=== PATIENT | male | born 1970 | race Caucasian/White ===

== ENCOUNTER 2017-08-30 23:17 | Emergency (ER) | payer MEDICAID ==
[~2017-08-30] VITALS: Ht 175.3 cm; Wt 88.5 kg
[2017-08-30 23:21] VITALS: Ht 175.3 cm; Wt 88.5 kg
[2017-08-31 02:12] VITALS: BP 107/72
== END 2017-08-31 02:12 | disposition left against medical advice (07) ==
LOC: ED 23:17
DX: Z53.21 Procedure and treatment not carried out due to patient leaving prior to being seen by health care provider (principal)

== ENCOUNTER 2018-09-21 12:14 | Emergency (ER) | payer MEDICAID ==
[~2018-09-21] VITALS: Ht 175.3 cm; Wt 90.7 kg
[2018-09-21 12:30] VITALS: Ht 175.3 cm; Wt 90.7 kg
[2018-09-21 14:11] VITALS: BP 113/74
== END 2018-09-21 14:20 | disposition home or self-care (01) ==
LOC: ED 12:14
DX: J45.901 Unspecified asthma with (acute) exacerbation (principal); R06.03 Acute respiratory distress
CPT/HCPCS: 99406; J2930; J7030; J7620

== ENCOUNTER 2018-09-23 22:04 | Emergency (ER) | payer MEDICAID ==
[~2018-09-23] VITALS: Ht 175.3 cm; Wt 93.0 kg
[2018-09-23 22:32] VITALS: Ht 175.3 cm; Wt 93.0 kg
[2018-09-24 01:20] VITALS: BP 122/76
== END 2018-09-24 01:20 | disposition home or self-care (01) ==
LOC: ED 22:04
DX: J45.901 Unspecified asthma with (acute) exacerbation (principal)
CPT/HCPCS: J7512; J7613; J7644

== ENCOUNTER 2018-10-23 05:43 | Emergency (ER) | payer MEDICAID ==
[~2018-10-23] VITALS: Ht 175.3 cm; Wt 90.3 kg
[2018-10-23 05:50] VITALS: Ht 175.3 cm; Wt 90.3 kg
[2018-10-23 08:27] VITALS: BP 128/89
== END 2018-10-23 08:27 | disposition home or self-care (01) ==
LOC: ED 05:43
DX: J45.901 Unspecified asthma with (acute) exacerbation (principal)
CPT/HCPCS: J7512; J7613; J7644

== ENCOUNTER 2020-03-13 20:22 | Emergency (ER) | payer MEDICAID ==
[~2020-03-13] VITALS: Ht 175.3 cm; Wt 90.7 kg
[2020-03-13 20:35] VITALS: BP 113/72; Ht 175.3 cm; Wt 90.7 kg
== END 2020-03-13 22:15 | disposition left against medical advice (07) ==
LOC: ED 20:22
DX: Z53.21 Procedure and treatment not carried out due to patient leaving prior to being seen by health care provider (principal)